=== PATIENT | female | born 1945 | race American Indian/Alaskan Native ===

== ENCOUNTER 2018-04-17 12:10 | Inpatient (IN) | payer MEDICARE ==
[2018-04-17] MEDS ORDERED: D50W (25GM) Syringe IV ONE (12:25)
[2018-04-17] MEDS ORDERED: NACL 0.9% 1000 ML 1,000 ML ONE (12:25)
--- NOTE | 2018-04-17 13:58 | Emergency Department Report ---
HPI - General Chief Complaint: Hypoglycemia Time Seen by Provider: 04/17/18 13:32 - HPI HPI: Room 2 The patient is 72-year-old female presenting with chief complaint decubitus ulcer infection. The patient has a hospice and home health nurse. Family sta hanh today the home health nurse states the patient's sacral decubitus ulcer appeared infected. She states it was malodorous and there was a green discharge noticed today. Family states there has been no history of fever the patient has not been eating or drinking for the past 2-3 days. There's been no history of vomiting Location: Sacral Duration: [See above] Quality: [See above] Severity: Moderate Modifying factors: [see above] Context: [see above] Mode of transportation: [not driving] ED Past Medical Hx - Past Medical History Previous Medical History?: Yes Hx Hypertension: Yes Hx CVA: Yes Hx Arthritis: Yes Hx Dementia: Yes (Alzheimer's) Additional medical history: gout - Surgical History Additional Surgical History: Ankle surgery - Family History Family history: no significant - Social History Smoking Status: Never Smoker Substance Use Type: None ED Review of Systems ROS: Stated complaint: NOT EATING DAYS/BED SORES Other details as noted in HPI Comment: Unobtainable due to pts medical conditions (dementia) Physical Exam - Physical Exam Vital Signs: Vital Signs 04/17/18 12:52 Temperature 98.3 F Pulse Rate 56 L Respiratory 12 Rate Blood Pressure 113/52 O2 Sat by Pulse 99 Oximetry Physical Exam: GENERAL: The patient is well-developed well-nourished female lying on stretcher not appearing to be in acute distress. [] HEENT: Normocephalic. Atraumatic. Extraocular motions are intact. Patient has moist mucous membranes. NECK: Supple. Trachea midline CHEST/LUNGS: Clear to auscultation. There is no respiratory distress noted. HEART/CARDIOVASCULAR: Regular. There is no tachycardia. There is no gallop rub or murmur. ABDOMEN: Abdomen is soft, nontender. Patient has normal bowel sounds. There is no abdominal distention. SKIN: There is no diaphoresis. Proximal to the racquetball size sacral decubitus defect in the left gluteus with some green discharge. Second sacral decubitus ulcer approximately golf ball-sized defect with pink granulation tissue NEURO: The patient is awake. The patient is cooperative. The patient has no focal neurologic deficits. MUSCULOSKELETAL: There is no evidence of acute injury. ED Course Vital Signs 04/17/18 12:52 Temperature 98.3 F Pulse Rate 56 L Respiratory 12 Rate Blood Pressure 113/52 O2 Sat by Pulse 99 Oximetry ED Medical Decision Making - Lab Data Result diagrams: 04/17/18 13:43 04/17/18 13:43 Laboratory Tests 04/17/18 04/17/18 04/17/18 12:29 13:43 13:43 WBC 5.4 RBC 3.45 L Hgb 10.0 L Hct 32.4 MCV 94 MCH 29 MCHC 31 RDW 16.6 H Plt Count 274 Lymph % (Auto) 14.9 Payne % (Auto) 6.7 Eos % (Auto) 0.1 Baso % (Auto) 0.3 Lymph # 0.8 L Payne # 0.4 Eos # 0.0 Baso # 0.0 Seg Neutrophils % 78.0 H Seg Neutrophils # 4.2 Sodium 162 H* Potassium 2.7 L* Chloride 86.1 L Carbon Dioxide 18 L Anion Gap 61 BUN 10 Creatinine 0.3 L Estimated GFR > 60 BUN/Creatinine Ratio 33 Glucose 135 H POC Glucose 68 L Lactic Acid Calcium 7.7 L Total Bilirubin 0.30 AST 39 ALT 24 Alkaline Phosphatase 249 H Total Protein 5.8 L Albumin 2.6 L Albumin/Globulin Ratio 0.8 04/17/18 13:53 WBC RBC Hgb Hct MCV MCH MCHC RDW Plt Count Lymph % (Auto) Payne % (Auto) Eos % (Auto) Baso % (Auto) Lymph # Payne # Eos # Baso # Seg Neutrophils % Seg Neutrophils # Sodium Potassium Chloride Carbon Dioxide Anion Gap BUN Creatinine Estimated GFR BUN/Creatinine Ratio Glucose POC Glucose Lactic Acid 1.60 Calcium Total Bilirubin AST ALT Alkaline Phosphatase Total Protein Albumin Albumin/Globulin Ratio - Differential Diagnosis decubitus ulcer Critical care attestation.: If time is entered above; I have spent that time in minutes in the direct care of this critically ill patient, excluding procedure time. ED Disposition Clinical Impression: decubitus ulcer,, Hypernatremia, Hypokalemia Disposition: OP ADMIT IP TO THIS HOSP Is pt being admited?: Yes Does the pt Need Aspirin: Yes Condition: Fair Time of Disposition: 14:53 (hospitalist paged (Dr Gomez))
[2018-04-17 14:07] LABS: Basophils % (Auto) 0.3 % (0.0-1.8); Eosinophils % (Auto) 0.1 % (0.0-4.3); Hematocrit 32.4 % (30.3-42.9); Lymphocytes # (Auto) 0.8 K/mm3 (1.2-5.4); Lymphocytes % (Auto) 14.9 % (13.4-35.0); Mean Corpuscular HGB Conc 31 % (30-34); Mean Corpuscular Volume 94 fl (79-97); Monocytes # (Auto) 0.4 K/mm3 (0.0-0.8); Monocytes % (Auto) 6.7 % (0.0-7.3); Platelet Count 274 K/mm3 (140-440); Red Blood Count 3.45 M/mm3 (3.65-5.03); Red Cell Distribution Width 16.6 % (13.2-15.2)
[2018-04-17 14:31] LABS: Alanine Aminotransferase 24 units/L (7-56); Albumin 2.6 g/dL (3.9-5); BUN/Creatinine Ratio 33; Blood Urea Nitrogen 10 mg/dL (7-17); Calcium 7.7 mg/dL (8.4-10.2); Hemolysis Index 13
[2018-04-17] MEDS ORDERED: NACL 0.9% 1000 ML 1,000 ML IV ONE (14:49)
[2018-04-17] MEDS: KCL 10MEQ/100ML 10 MEQ/100 ML BAG IV SCH ×5 (15:06→23:49)
[2018-04-17] MEDS ORDERED: D50W (25GM) Syringe IV PRN (17:23)
[2018-04-17] MEDS ORDERED: KCL 10MEQ/100ML 10 MEQ/100 ML BAG IV ONE (19:20)
--- NOTE | 2018-04-17 21:37 | Event Note ---
Date: 04/17/18 See dictated H/p in reports Sacral Decub ulcer --infected Hypernatremia Hypokalemia Full code
[2018-04-17] MEDS ORDERED: REGLAN IV PRN (22:09)
[2018-04-17] MEDS ORDERED: DILAUDID IV PRN ×2 (22:09)
[2018-04-17] MEDS ORDERED: SODIUM CHLORIDE FLUSH SYRINGE 10 ML IV PRN (22:09)
[2018-04-17] MEDS ORDERED: TYLENOL PO PRN (22:09)
[2018-04-17] MEDS ORDERED: ZOFRAN IV PRN (22:09)
--- NOTE | 2018-04-17 22:52 | History and Physical Report ---
CHIEF COMPLAINT: 1. Decreased p.o. intake. 2. Lethargy. 3. Sacral decubitus ulcer, which is infected. HISTORY OF PRESENT ILLNESS: A 72-year-old female with sacral decubitus ulcer on hospice, brought in by daughter for being lethargic and poor p.o. intake for the last 2 days. The wound has been foul smelling. Daughter wanted to be treated with antibiotics and IV fluids. We had discussion about the patient being in the hospital and to write a DNR, but the daughter wants everything to be done. The patient wants to be treated aggressively. Low-grade fever present. The patient has been with decreased responsiveness also. PAST MEDICAL HISTORY: Significant for hypertension, cerebrovascular accident, dementia, gout, and hyperlipidemia. PAST SURGICAL HISTORY: Ankle surgery. SOCIAL HISTORY: Does not smoke. The patient goes to [employer]. The patient lives at home with her daughter. REVIEW OF SYSTEMS: Significant for decubitus ulcers and poor p.o. intake and decreased responsiveness and low grade fever. Otherwise, review of systems negative. The patient is curled up and trying to rest. PHYSICAL EXAMINATION: GENERAL: Elderly female, looks older than her age. VITAL SIGNS: Blood pressure is 132/72, temperature is 98, pulse is 64, respirations 12, and sats are 98%. HEENT: Unremarkable. Pupils are equal and reactive. NECK: Supple, no lymphadenopathy, no thyromegaly. LUNGS: Clear to auscultation and percussion. Good air entry. CARDIOVASCULAR: S1, S2 heard. No gallop, no murmur, no rub. Apical impulse in left fifth intercostal space and midclavicular line. ABDOMEN: Soft and benign. No hepatosplenomegaly. No guarding, no rigidity. Hernial orifices are normal. EXTREMITIES: Severe sacral decubitus, large sacral decubitus ulcer present. Foul smelling discharge present. Stage 4 ulcer. Pictures of the decubitus ulcer on the chart. EXTREMITIES: Weak pedal pulses. CENTRAL NERVOUS SYSTEM: Alert, but not oriented to time and place. SKIN: As mentioned, sacral decubitus ulcer, stage 4. LABORATORY DATA: Significant for white count of 5400, H and H of 10.0 and 32.4, and platelet count of 274,000. Sodium is 162, potassium is 2.7, BUN and creatinine are 10 and 0.3, and glucose is 135. Repeat glucose is 68 and 126. Alkaline phosphatase is 249, total protein is 5.8, and albumin is 2.6. ASSESSMENT AND PLAN: 1. Severe sacral decubitus ulcer. Wound care consult and surgical consult requested. IV antibiotics ordered. The patient is end-stage life. Discussed with daughter about the care. The daughter wants everything to be done. She does not want a DNR at this point. 2. Hypernatremia. D5W started to decrease the sodium concentration. 3. Hypokalemia. IV potassium. 4. Poor p.o. intake. The patient may need PEG tube. As per daughter, she may need PEG tube. 5. Hyperlipidemia. Statin can be stopped because it is not necessary given her condition. 6. Hypertension. Continue nifedipine and lisinopril. 7. Dementia with agitation, continue Seroquel. 8. Deep venous thrombosis prophylaxis, Lovenox 30 mg subcutaneous daily. 9. Severe malnutrition. Dietitian consult requested. JOB# [id number] VSM/NTS
[2018-04-17] MEDS: D5W 1,000 ML IV SCH (23:49)
[2018-04-18] MEDS: KCL 10MEQ/100ML 10 MEQ/100 ML BAG IV SCH ×3 (00:57→03:40)
[2018-04-18] MEDS ORDERED: VANCOMYCIN PHARMACY TO DOSE IV SCH (02:00)
[2018-04-18] MEDS ORDERED: VANCOMYCIN/NS 1 GM/250 ML 1 GM/250 ML BAG IV ONE (02:30)
[2018-04-18] MEDS: UNASYN/NS 3 GM/100 ML 3 GM/100 ML BAG IV SCH ×4 (04:21→17:26)
[2018-04-18 04:28] LABS: Basophils % (Auto) 0.6 % (0.0-1.8); Eosinophils % (Auto) 1.1 % (0.0-4.3); Hematocrit 33.7 % (30.3-42.9); Lymphocytes # (Auto) 1.1 K/mm3 (1.2-5.4); Lymphocytes % (Auto) 28.8 % (13.4-35.0); Mean Corpuscular HGB Conc 33 % (30-34); Mean Corpuscular Volume 92 fl (79-97); Monocytes # (Auto) 0.3 K/mm3 (0.0-0.8); Monocytes % (Auto) 8.3 % (0.0-7.3); Platelet Count 272 K/mm3 (140-440); Red Blood Count 3.66 M/mm3 (3.65-5.03)
[2018-04-18 04:51] LABS: Alanine Aminotransferase 29 units/L (7-56); Albumin 2.8 g/dL (3.9-5); BUN/Creatinine Ratio 23; Blood Urea Nitrogen 7 mg/dL (7-17); Calcium 8.4 mg/dL (8.4-10.2); Hemolysis Index 27
[2018-04-18] MEDS: PEPCID PO SCH ×2 (09:43→22:39)
[2018-04-18] MEDS: ZESTRIL PO SCH (09:43)
[2018-04-18] MEDS: SODIUM CHLORIDE FLUSH SYRINGE 10 ML IV SCH ×2 (09:43→22:39)
[2018-04-18] MEDS: PROCARDIA XL PO SCH (09:53)
--- NOTE | 2018-04-18 10:44 | Gastroenterology Consultation ---
Addendum entered and electronically signed by LACY CHACKO MD 04/18/18 15:12: I have personally interviewed and examined the patient. I agree with the above A/P. The patient is nonverbal (dementia per daughter). Severe decubitus, and malnutrition. Discussed hospice option with daughter, but she is adamant that she wants PEG tube to assist with feeding, though it will likely not improve her mother's quality of life. Will plan on Friday 04/21; Dr Ruiz is glass ribbon machine operator assistant over the weekend for us. Original Note: History of Present Illness - Reason for Consult Consult date: 04/18/18 PEG placement Requesting physician: JUAN R RAHMAN - History of Present Illness Patient is a 72 y/o female with PMH of HTN, CVA, arthritis, Dementia/Alzheimer's who was admitted for infected sacral decubitus ulcer and poor PO intake. GI has been consulted for a PEG placement. This morning patient was resting in bed w/o acute distress. Noted to be non-verbal and unable to provide history. History obtained via chart review and by speaking to family via phone (daughter Eli Lancaster). Daughter reports patient has not been eating or drinking at home for last 2-3 days. Upon exam, abdomen is benign with no evidence of abd pain or N/V. Patient has a hospice and home health nurse. Past History Past Medical History: other (as per HPI) Past Surgical History: Other (ankle surgery) Social history: denies: smoking, alcohol abuse Family history: no significant family history Medications and Allergies Allergies Allergy/AdvReac Type Severity Reaction Status Date / Time No Known Allergies Allergy Unverified 04/17/18 13:34 Home Medications Medication Instructions Recorded Confirmed Last Taken Type AtorvaSTATin [Lipitor] 40 mg PO DAILY 04/17/18 04/17/18 Unknown History Cholecalciferol Vit D3 [Vitamin D3] 1,000 unit PO DAILY 04/17/18 04/17/18 U nknown History Lisinopril [Zestril TAB] 10 mg PO DAILY 04/17/18 04/17/18 Unknown History NIFEdipine [Adalat cc] 90 mg PO DAILY 04/17/18 04/17/18 Unknown History QUEtiapine [SEROquel] 25 mg PO QHS 04/17/18 04/17/18 Unknown History Active Meds: Active Medications Acetaminophen (Tylenol) 650 mg PO Q4H PRN PRN Reason: Pain MILD(1-3)/Fever >100.5/MOREAU Dextrose (D50w (25gm) Syringe) 50 ml IV PRN PRN PRN Reason: Hypoglycemia Last Admin: 04/17/18 17:25 Dose: 50 ml Documented by: Enoxaparin Sodium (Lovenox) 30 mg SUB-Q QDAY@2200 [facility] Famotidine (Pepcid) 20 mg PO BID [facility] Last Admin: 04/18/18 09:43 Dose: 20 mg Documented by: Hydromorphone HCl (Dilaudid) 0.25 mg IV Q3H PRN PRN Reason: Pain, Moderate (4-6) Hydromorphone HCl (Dilaudid) 0.5 mg IV Q3H PRN PRN Reason: Pain , Severe (7-10) Dextrose (D5w) 1,000 mls @ 100 mls/hr IV DIRECT [facility] Last Admin: 04/17/18 23:49 Dose: 100 mls/hr Documented by: Ampicillin Sodium/Sulbactam Sodium (Unasyn/Ns 3 Gm/100 Ml) 3 gm in 100 mls @ 100 mls/hr IV Q6HR [facility]; Protocol Last Admin: 04/18/18 06:07 Dose: 100 mls/hr Documented by: Vancomycin HCl 750 mg/ Sodium (Chloride) 265 mls @ 166.667 mls/hr IV Q12H [facility] Lisinopril (Zestril) 10 mg PO DAILY [facility] Last Admin: 04/18/18 09:43 Dose: 10 mg Documented by: Metoclopramide HCl (Reglan) 10 mg IV Q6H PRN PRN Reason: Nausea And Vomiting Nifedipine (Procardia Xl) 90 mg PO QDAY [facility] Last Admin: 04/18/18 09:53 Dose: Not Given Documented by: Ondansetron HCl (Zofran) 4 mg IV Q8H PRN PRN Reason: Nausea And Vomiting Quetiapine Fumarate (Seroquel) 25 mg PO QHS [facility] Sodium Chloride (Sodium Chloride Flush Syringe 10 Ml) 10 ml IV BID [facility] Sodium Chloride (Sodium Chloride Flush Syringe 10 Ml) 10 ml IV PRN PRN PRN Reason: LINE FLUSH medications reviewed/updated as required Review of Systems - Review of Systems ROS unobtainable: due to mental status Exam - Constitutional Vital Signs: Temp Pulse Resp BP Pulse Ox 98.0 F 49 L 20 150/59 100 04/18/18 07:59 04/18/18 09:43 04/18/18 08:58 04/18/18 09:43 04/18/18 08:58 General appearance: no acute distress, cachectic, other (nonverbal) - Respiratory Respiratory: bilateral: diminished - Cardiovascular Rhythm: other (bradycardia) - Gastrointestinal General gastrointestinal: Present: soft, non-distended, normal bowel sounds - Musculoskeletal Musculoskeletal: other (contractured, bed sores with dressings) - Neurologic Neurological: other (unable to assess) - Labs CBC & Chem 7: 04/18/18 03:28 04/18/18 03:28 Lab Results: Laboratory Results - last 24 hr 04/17/18 04/17/18 04/17/18 12:29 13:43 13:43 WBC 5.4 RBC 3.45 L Hgb 10.0 L Hct 32.4 MCV 94 MCH 29 MCHC 31 RDW 16.6 H Plt Count 274 Lymph % (Auto) 14.9 Wake % (Auto) 6.7 Eos % (Auto) 0.1 Baso % (Auto) 0.3 Lymph # 0.8 L Wake # 0.4 Eos # 0.0 Baso # 0.0 Seg Neutrophils % 78.0 H Seg Neutrophils # 4.2 Sodium 162 H* Potassium 2.7 L* Chloride 86.1 L Carbon Dioxide 18 L Anion Gap 61 BUN 10 Creatinine 0.3 L Estimated GFR > 60 BUN/Creatinine Ratio 33 Glucose 135 H POC Glucose 68 L Hemoglobin A1c Lactic Acid Calcium 7.7 L Total Bilirubin 0.30 AST 39 ALT 24 Alkaline Phosphatase 249 H Total Protein 5.8 L Albumin 2.6 L Albumin/Globulin Ratio 0.8 04/17/18 04/17/18 04/17/18 13:53 17:03 22:57 WBC RBC Hgb Hct MCV MCH MCHC RDW Plt Count Lymph % (Auto) [place] % (Auto) Eos % (Auto) Baso % (Auto) Lymph # Wake # Eos # Baso # Seg Neutrophils % Seg Neutrophils # Sodium Potassium Chloride Carbon Dioxide Anion Gap BUN Creatinine Estimated GFR BUN/Creatinine Ratio Glucose POC Glucose 126 H Hemoglobin A1c 5.3 Lactic Acid 1.60 Calcium Total Bilirubin AST ALT Alkaline Phosphatase Total Protein Albumin Albumin/Globulin Ratio 04/18/18 04/18/18 03:28 03:28 WBC 3.7 L RBC 3.66 Hgb 11.0 Hct 33.7 MCV 92 MCH 30 MCHC 33 RDW 16.0 H Plt Count 272 Lymph % (Auto) 28.8 Wake % (Auto) 8.3 H Eos % (Auto) 1.1 Baso % (Auto) 0.6 Lymph # 1.1 L Wake # 0.3 Eos # 0.0 Baso # 0.0 Seg Neutrophils % 61.2 Seg Neutrophils # 2.3 Sodium 144 D Potassium 4.7 D Chloride 107.4 H Carbon Dioxide 23 Anion Gap 18 BUN 7 Creatinine 0.3 L Estimated GFR > 60 BUN/Creatinine Ratio 23 Glucose 73 POC Glucose Hemoglobin A1c Lactic Acid Calcium 8.4 Total Bilirubin 0.40 AST 51 H ALT 29 Alkaline Phosphatase 315 H Total Protein 6.7 Albumin 2.8 L Albumin/Globulin Ratio 0.7 Assessment and Plan 1.PEG placement -discussed the option of a PEG placement with patient's daughter to include nature of procedure, details of technique, benefits, purpose, and risks including perforation, bleeding, infection, and independent risks of anesthesia. After consideration, family wishes to proceed with PEG placement. -will tentatively schedule for EGD/PEG on Friday 04/21 -consider alternative method of nutrition for now -NPO after MN 04/21 -hold am dose of lovenox 04/21 -INR in am 04/21 -continue supportive care -will follow
[2018-04-18] MEDS: VANCOMYCIN 750 MG in NACL 0.9% 250ML 250 ML IV SCH (13:56)
--- NOTE | 2018-04-18 14:00 | Consultation ---
History of Present Illness Consult date: 04/18/18 Reason for consult: wound care Requesting physician: JUAN R RAHMAN Chief complaint: sacral ulcer - History of present illness History of present illness: 72yo F from [facility] was brought in due to concerns about infected sacral ulcer and failure to thrive issues. Pt unable to give any history. No families of bedside. History was obtained from staff and chart. Past History Past Medical History: other (as per HPI) Past Surgical History: Other (ankle surgery) Social history: denies: smoking, alcohol abuse Family history: no significant family history Medications and Allergies Allergies Allergy/AdvReac Type Severity Reaction Status Date / Time No Known Allergies Allergy Unverified 04/17/18 13:34 Home Medications Medication Instructions Recorded Confirmed Last Taken Type AtorvaSTATin [Lipitor] 40 mg PO DAILY 04/17/18 04/17/18 Unknown History Cholecalciferol Vit D3 [Vitamin D3] 1,000 unit PO DAILY 04/17/18 04/17/18 Unknown History Lisinopril [Zestril TAB] 10 mg PO DAILY 04/17/18 04/17/18 Unknown History NIFEdipine [Adalat cc] 90 mg PO DAILY 04/17/18 04/17/18 Unknown History QUEtiapine [SEROquel] 25 mg PO QHS 04/17/18 04/17/18 Unknown History Active Meds: Active Medications Acetaminophen (Tylenol) 650 mg PO Q4H PRN PRN Reason: Pain MILD(1-3)/Fever >100.5/[facility]AU Dextrose (D50w (25gm) Syringe) 50 ml IV PRN PRN PRN Reason: Hypoglycemia Last Admin: 04/17/18 17:25 Dose: 50 ml Documented by: Enoxaparin Sodium (Lovenox) 30 mg SUB-Q QDAY@2200 [facility] Famotidine (Pepcid) 20 mg PO BID [facility] Last Admin: 04/18/18 09:43 Dose: 20 mg Documented by: Hydromorphone HCl (Dilaudid) 0.25 mg IV Q3H PRN PRN Reason: Pain, Moderate (4-6) Hydromorphone HCl (Dilaudid) 0.5 mg IV Q3H PRN PRN Reason: Pain , Severe (7-10) Dextrose (D5w) 1,000 mls @ 100 mls/hr IV DIRECT [facility] Last Admin: 04/17/18 23:49 Dose: 100 mls/hr Documented by: Ampicillin Sodium/Sulbactam Sodium (Unasyn/Ns 3 Gm/100 Ml) 3 gm in 100 mls @ 100 mls/hr IV Q6HR [facility]; Protocol Last Admin: 04/18/18 11:56 Dose: 100 mls/hr Documented by: Vancomycin HCl 750 mg/ Sodium (Chloride) 265 mls @ 166.667 mls/hr IV Q12H [facility] Lisinopril (Zestril) 10 mg PO DAILY [facility] Last Admin: 04/18/18 09:43 Dose: 10 mg Documented by: Metoclopramide HCl (Reglan) 10 mg IV Q6H PRN PRN Reason: Nausea And Vomiting Nifedipine (Procardia Xl) 90 mg PO QDAY [facility] Last Admin: 04/18/18 09:53 Dose: Not Given Documented by: Ondansetron HCl (Zofran) 4 mg IV Q8H PRN PRN Reason: Nausea And Vomiting Quetiapine Fumarate (Seroquel) 25 mg PO QHS [facility] Sodium Chloride (Sodium Chloride Flush Syringe 10 Ml) 10 ml IV BID [facility] Last Admin: 04/18/18 09:43 Dose: 10 ml Documented by: Sodium Chloride (Sodium Chloride Flush Syringe 10 Ml) 10 ml IV PRN PRN PRN Reason: LINE FLUSH Review of Systems ROS unobtainable: due to mental status (pt is non-communicative) Exam Vital Signs Pulse Resp BP Pulse Ox 55 L 12 113/52 98 04/17/18 12:49 04/17/18 12:49 04/17/18 12:49 04/17/18 12:49 - General physical appearance Positive: no distress, no pain, cathetic, other (awake) - Respiratory Positive: normal expansion, normal respiratory effort - Integumentary other (Left hip wound has mild fibrinous tissue and necrotic tissue. Sacral wound is relatively clean. minimal fibrinous/necrotic tissue.) Results - Labs 04/18/18 03:28 04/18/18 03:28 Abnormal lab results 04/17/18 04/17/18 04/17/18 Range/Units 13:43 13:43 17:03 WBC (4.5-11.0) K/mm3 RBC 3.45 L (3.65-5.03) M/mm3 Hgb 10.0 L (10.1-14.3) gm/dl RDW 16.6 H (13.2-15.2) % [place] % (Auto) (0.0-7.3) % Lymph # 0.8 L (1.2-5.4) K/mm3 Seg Neutrophils % 78.0 H (40.0-70.0) % Sodium 162 H* (137-145) mmol/L Potassium 2.7 L* (3.6-5.0) mmol/L Chloride 86.1 L (98-107) mmol/L Carbon Dioxide 18 L (22-30) mmol/L Creatinine 0.3 L (0.7-1.2) mg/dL Glucose 135 H (65-100) mg/dL POC Glucose 126 H (70-105) Calcium 7.7 L (8.4-10.2) mg/dL AST (5-40) units/L Alkaline Phosphatase 249 H (35-129) units/L Total Protein 5.8 L (6.3-8.2) g/dL Albumin 2.6 L (3.9-5) g/dL 04/18/18 04/18/18 Range/Units 03:28 03:28 WBC 3.7 L (4.5-11.0) K/mm3 RBC (3.65-5.03) M/mm3 Hgb (10.1-14.3) gm/dl RDW 16.0 H (13.2-15.2) % [place] % (Auto) 8.3 H (0.0-7.3) % Lymph # 1.1 L (1.2-5.4) K/mm3 Seg Neutrophils % (40.0-70.0) % Sodium (137-145) mmol/L Potassium (3.6-5.0) mmol/L Chloride 107.4 H (98-107) mmol/L Carbon Dioxide (22-30) mmol/L Creatinine 0.3 L (0.7-1.2) mg/dL Glucose (65-100) mg/dL POC Glucose (70-105) Calcium (8.4-10.2) mg/dL AST 51 H (5-40) units/L Alkaline Phosphatase 315 H (35-129) units/L Total Protein (6.3-8.2) g/dL Albumin 2.8 L (3.9-5) g/dL Diabetes panel 04/17/18 04/17/18 04/18/18 Range/Units 13:43 22:57 03:28 Sodium 162 H* 144 D (137-145) mmol/L Potassium 2.7 L* 4.7 D (3.6-5.0) mmol/L Chloride 86.1 L 107.4 H (98-107) mmol/L Carbon Dioxide 18 L 23 (22-30) mmol/L BUN 10 7 (7-17) mg/dL Creatinine 0.3 L 0.3 L (0.7-1.2) mg/dL Glucose 135 H 73 (65-100) mg/dL Hemoglobin A1c 5.3 (4-6) % Calcium 7.7 L 8.4 (8.4-10.2) mg/dL AST 39 51 H (5-40) units/L ALT 24 29 (7-56) units/L Alkaline Phosphatase 249 H 315 H (35-129) units/L Total Protein 5.8 L 6.7 (6.3-8.2) g/dL Albumin 2.6 L 2.8 L (3.9-5) g/dL Calcium panel 04/17/18 04/18/18 Range/Units 13:43 03:28 Calcium 7.7 L 8.4 (8.4-10.2) mg/dL Albumin 2.6 L 2.8 L (3.9-5) g/dL Pituitary panel 04/17/18 04/18/18 Range/Units 13:43 03:28 Sodium 162 H* 144 D (137-145) mmol/L Potassium 2.7 L* 4.7 D (3.6-5.0) mmol/L Chloride 86.1 L 107.4 H (98-107) mmol/L Carbon Dioxide 18 L 23 (22-30) mmol/L BUN 10 7 (7-17) mg/dL Creatinine 0.3 L 0.3 L (0.7-1.2) mg/dL Glucose 135 H 73 (65-100) mg/dL Calcium 7.7 L 8.4 (8.4-10.2) mg/dL Adrenal panel 04/17/18 04/18/18 Range/Units 13:43 03:28 Sodium 162 H* 144 D (137-145) mmol/L Potassium 2.7 L* 4.7 D (3.6-5.0) mmol/L Chloride 86.1 L 107.4 H (98-107) mmol/L Carbon Dioxide 18 L 23 (22-30) mmol/L BUN 10 7 (7-17) mg/dL Creatinine 0.3 L 0.3 L (0.7-1.2) mg/dL Glucose 135 H 73 (65-100) mg/dL Calcium 7.7 L 8.4 (8.4-10.2) mg/dL Total Bilirubin 0.30 0.40 (0.1-1.2) mg/dL AST 39 51 H (5-40) units/L ALT 24 29 (7-56) units/L Alkaline Phosphatase 249 H 315 H (35-129) units/L Total Protein 5.8 L 6.7 (6.3-8.2) g/dL Albumin 2.6 L 2.8 L (3.9-5) g/dL Assessment and Plan - Patient Problems (1) Decubitus skin ulcer Current Visit: Yes Status: Acute Qualifiers: Pressure injury location: sacral region Pressure injury stage: unstageable Qualified Code(s): L89.150 - Pressure ulcer of sacral region, unstageable Plan to address problem: Pt stable. Will begin with alginate therapy. No significant debridement needed at this time. Will re-evaluate with wound care nurse next week. Ultimately, the main therapy she needs is offloading. She needs to be turned q2h. She is not a candidate for wound vac due to hospice status. Will follow along. Please call with questions. Time=30min (2) Decubitus skin ulcer Current Visit: Yes Status: Acute Qualifiers: Pressure injury location: hip Pressure injury stage: unstageable Laterality: left Qualified Code(s): L89.220 - Pressure ulcer of left hip, unstageable Plan to address problem: Pt stable. Will begin with alginate therapy. No significant debridement needed at this time. Will re-evaluate with wound care nurse next week. Ultimately, the main therapy she needs is offloading. She needs to be turned q2h. She is not a candidate for wound vac due to hospice status. Will follow along. Please call with questions.
--- NOTE | 2018-04-18 17:08 | Progress Note ---
Assessment and Plan Assessment and plan: Patient is a 72 y/o female with PMH of HTN, CVA, arthritis, advance Dementia/Alzheimer's who was admitted for infected sacral decubitus ulcer and poor PO intake. GI has been consulted for a PEG placement. This morning patient was resting in bed w/o acute distress. Noted to be non-verbal and unable to pro vide history. History obtained via chart review and by speaking to family via phone (daughter Eli Lancaster). Daughter reports patient has not been eating or drinking at home for last 2-3 days. Upon exam, abdomen is benign with no evidence of abd pain or N/V. Patient has a hospice and home health nurse. Infected sacral ulcer: for possible debridement Severe malnutrition, FTT: for PEG on Saturday Functional quadriplegia, bed bound Acute metabolic encephalopathy, poa I called [facility] at [phone] History Interval history: Patient was seen and examined. Follow-up on current diagnosis. Overnight uneventful. Patient denies any chest pain, shortness breath, nausea/vomiting or severe headaches. Imaging, nursing note, chart, labs and old chart reviewed. Dis cussed with patient. Gen: WDWN, NAD, Awake, Alert, Orientated HEENT: NCAT, EOMI, PERRL, OP Clear Neck: supple, no adenopathy, no thyromegaly, no JVD CVS/Heart: RRR, normal S1S2, pulses present bilaterally Chest/Lungs: CTA B, Symmetrical chest expansion, good air entry bilaterally GI/Abdomen: soft, NTND, good bowel sounds, no guarding or rebound /Bladder: no suprapubic tenderness, no CVA or paraspinal tenderness Extermity/Skin: no c/c/e, no obvious rash MSK: FROM x 4 Neuro: CN 2-12 grossly intact, no new focal deficits Psych: calm Hospitalist Physical - Constitutional Vitals: Temp Pulse Resp BP Pulse Ox 97.7 F 58 L 20 129/40 99 04/18/18 13:54 04/18/18 13:54 04/18/18 13:54 04/18/18 13:54 04/18/18 13:54 Results - Labs CBC & Chem 7: 04/18/18 03:28 04/18/18 03:28 Labs: Laboratory Last Values WBC 3.7 K/mm3 (4.5-11.0) L 04/18/18 03:28 RBC 3.66 M/mm3 (3.65-5.03) 04/18/18 03:28 Hgb 11.0 gm/dl (10.1-14.3) 04/18/18 03:28 Hct 33.7 % (30.3-42.9) 04/18/18 03:28 MCV 92 fl (79-97) 04/18/18 03:28 MCH 30 pg (28-32) 04/18/18 03:28 MCHC 33 % (30-34) 04/18/18 03:28 RDW 16.0 % (13.2-15.2) H 04/18/18 03:28 Plt Count 272 K/mm3 (140-440) 04/18/18 03:28 Lymph % (Auto) 28.8 % (13.4-35.0) 04/18/18 03:28 [place] % (Auto) 8.3 % (0.0-7.3) H 04/18/18 03:28 Eos % (Auto) 1.1 % (0.0-4.3) 04/18/18 03:28 Baso % (Auto) 0.6 % (0.0-1.8) 04/18/18 03:28 Lymph # 1.1 K/mm3 (1.2-5.4) L 04/18/18 03:28 [place] # 0.3 K/mm3 (0.0-0.8) 04/18/18 03:28 Eos # 0.0 K/mm3 (0.0-0.4) 04/18/18 03:28 Baso # 0.0 K/mm3 (0.0-0.1) 04/18/18 03:28 Seg Neutrophils % 61.2 % (40.0-70.0) 04/18/18 03:28 Seg Neutrophils # 2.3 K/mm3 (1.8-7.7) 04/18/18 03:28 Sodium 144 mmol/L (137-145) D 04/18/18 03:28 Potassium 4.7 mmol/L (3.6-5.0) D 04/18/18 03:28 Chloride 107.4 mmol/L (98-107) H 04/18/18 03:28 Carbon Dioxide 23 mmol/L (22-30) 04/18/18 03:28 Anion Gap 18 mmol/L 04/18/18 03:28 BUN 7 mg/dL (7-17) 04/18/18 03:28 Creatinine 0.3 mg/dL (0.7-1.2) L 04/18/18 03:28 Estimated GFR > 60 ml/min 04/18/18 03:28 BUN/Creatinine Ratio 23 % 04/18/18 03:28 Glucose 73 mg/dL (65-100) 04/18/18 03:28 POC Glucose 126 (70-105) H 04/17/18 17:03 Hemoglobin A1c 5.3 % (4-6) 04/17/18 22:57 Lactic Acid 1.60 mmol/L (0.7-2.0) 04/17/18 13:53 Calcium 8.4 mg/dL (8.4-10.2) 04/18/18 03:28 Total Bilirubin 0.40 mg/dL (0.1-1.2) 04/18/18 03:28 AST 51 units/L (5-40) H 04/18/18 03:28 ALT 29 units/L (7-56) 04/18/18 03:28 Alkaline Phosphatase 315 units/L (35-129) H 04/18/18 03:28 Total Protein 6.7 g/dL (6.3-8.2) 04/18/18 03:28 Albumin 2.8 g/dL (3.9-5) L 04/18/18 03:28 Albumin/Globulin Ratio 0.7 % 04/18/18 03:28 Nutrition/Malnutrition Assess - Dietary Evaluation Nutrition/Malnutrition Findings: Nutrition Notes Start: 04/18/18 12:00 Freq: Status: Active Protocol: Document 04/18/18 12:00 TW (Rec: 04/18/18 13:06 TW [id number]) Co-Sign 04/18/18 12:00 RM Nutrition Notes Need for Assessment generated from: MD Order design verification engineer MST Initial or Follow up Assessment Current Diagnosis Hypertension Stroke Hyperlipidemia Other Pertinent Diagnosis Dementia, Gout, Hip and Sacral wound Current Diet Regular w/ NPO after midnight Labs/Tests Na: 162 K: 2.7 Pertinent Medications Lovenox Height 4 ft 9.6 in Weight 43.4 kg [place] Body Weight (kg) 40.00 BMI 20.2 Weight change and time frame wt obtained from [facility] Subjective/Other Information MD consult for oral supplement . RN screen for MST Score, chewing difficulty and new onset DM. Pt does not appear to be 40ft tall. RN stated that ht is 4'9.6. Corrected in record accordingly. Pt not appropriate for DM diet education. Observed breakfast tray not eaten. Per RN, pt wants to be changed to the mechanical soft diet and Ensure Enlive supplements d/t chewing difficulties. No clavicle, temporal, or orbital wasting. Percent of energy/protein needs met: 0%/0% Burn Absent Trauma Absent #2 Nutrition Diagnosis Food and nutrition-related knowledge deficit #1 Nutrition Diagnosis Inadequate oral intake Etiology Dementia As Evidenced by Signs and Symptoms Pt meeting 0% of protein and kcal needs Is patient on ventilator? No Is Patient Ambulatory and/or Out of Bed No REE-([facility]-confined to bed) 999.240 Kcal/Kg value to use for calculation 29 Approximate Energy Requirements Using 1259 kcal/Kg Calculation Used for Recommendations Kcal/kg Additional Notes Protein needs: (1.2-1.5 g/kg) (52-65 g/day) Fluid needs: 1ml/ kcal Nutrition Intervention Change Diet Order: Mechanical Soft Add Supplement/Snack (indicate name/kcal Ensure Enlive daily /protein ) Provides kCal: 350 Provides Protein (gm) 20 Goal #1 Meet at least 75% of needs with kcal and protein intake Goal #2 ONS tolerance Anticipated Discharge Needs: unable to determine at this time Follow-Up By: 04/22/18 Additional Comments F/U for PO intakes, and ONS supplement
[2018-04-18] MEDS ORDERED: LOVENOX SUB-Q SCH (22:00)
[2018-04-18] MEDS: D5W 1,000 ML IV SCH (22:37)
[2018-04-19] MEDS: UNASYN/NS 3 GM/100 ML 3 GM/100 ML BAG IV SCH ×4 (00:33→17:20)
[2018-04-19] MEDS: VANCOMYCIN 750 MG in NACL 0.9% 250ML 250 ML IV SCH (02:40)
--- NOTE | 2018-04-19 09:11 | Event Note ---
Date: 04/19/18 1.PEG placement - will still plan for EGD/PEG on Saturday on 04/21. - NPO after MN on 04/20 - hold am dose of lovenox 04/21 - INR in am 04/21 - ensure electrolytes are wnl on 04/21.
[2018-04-19] MEDS: PROCARDIA XL PO SCH (09:43)
[2018-04-19] MEDS: ZESTRIL PO SCH (09:43)
[2018-04-19] MEDS: SODIUM CHLORIDE FLUSH SYRINGE 10 ML IV SCH (09:49)
[2018-04-19] MEDS: D5W 1,000 ML IV SCH (09:51)
[2018-04-19] MEDS ORDERED: PEPCID PO SCH (10:00)
--- NOTE | 2018-04-19 15:21 | Progress Note ---
Assessment and Plan Assessment and plan: Patient is a 72 y/o female with PMH of HTN, CVA, arthritis, advance Dementia/Alzheimer's who was admitted for infected sacral decubitus ulcer and poor PO intake. GI has been consulted for a PEG placement. This morning patient was resting in bed w/o acute distress. Noted to be non-verbal and unable to pro vide history. History obtained via chart review and by speaking to family via phone (daughter Eli Lancaster). Daughter reports patient has not been eating or drinking at home for last 2-3 days. Upon exam, abdomen is benign with no evidence of abd pain or N/V. Patient has a hospice and home health nurse. Infected sacral ulcer: iv abx, Surgery evaluated Severe malnutrition, FTT, albumin 2.6: for PEG on Saturday Functional quadriplegia, bed bound Acute metabolic encephalopathy, poa I called [facility] at [phone] again. Ok to send to [facility] facility I called and d/w sister Johana Hernandez at [phone], History Interval history: Patient was seen and examined. Follow-up on current diagnosis of Infected sacral ulcer. Overnight uneventful. Patient denies any chest pain, shortness breath, nausea/vomiting or severe headaches. Imaging, nursing note, chart, labs and old chart reviewed. Discussed with patient. Hospitalist Physical - Physical exam Narrative exam: Gen: cachetic, awake, confused, nonverbal HEENT: NCAT, EOMI, PERRL, OP Clear Neck: supple, no adenopathy, no thyromegaly, no JVD CVS/Heart: regular bradycardia normal S1S2, pulses present bilaterally Chest/Lungs: clear but poor effort, Symmetrical chest expansion, good air entry bilaterally GI/Abdomen: soft, NTND, good bowel sounds, no guarding or rebound /Bladder: no suprapubic tenderness, no CVA or paraspinal tenderness Extermity/Skin: left hip with unstage ulcer, sacrum with unstageble ulcer, MSK: contracted with atrophic limbs Neuro: CN 2-12 grossly intact, nonverbal, doesn't follow command Psych: calm but confused - Constitutional Vitals: Temp Pulse Resp BP Pulse Ox 97.8 F 55 L 20 142/64 100 04/19/18 07:43 04/19/18 10:00 04/19/18 07:43 04/19/18 09:43 04/19/18 07:43 Results - Labs CBC & Chem 7: 04/18/18 03:28 04/18/18 03:28 Labs: Laboratory Last Values WBC 3.7 K/mm3 (4.5-11.0) L 04/18/18 03:28 RBC 3.66 M/mm3 (3.65-5.03) 04/18/18 03:28 Hgb 11.0 gm/dl (10.1-14.3) 04/18/18 03:28 Hct 33.7 % (30.3-42.9) 04/18/18 03:28 MCV 92 fl (79-97) 04/18/18 03:28 MCH 30 pg (28-32) 04/18/18 03:28 MCHC 33 % (30-34) 04/18/18 03:28 RDW 16.0 % (13.2-15.2) H 04/18/18 03:28 Plt Count 272 K/mm3 (140-440) 04/18/18 03:28 Lymph % (Auto) 28.8 % (13.4-35.0) 04/18/18 03:28 [place] % (Auto) 8.3 % (0.0-7.3) H 04/18/18 03:28 Eos % (Auto) 1.1 % (0.0-4.3) 04/18/18 03:28 Baso % (Auto) 0.6 % (0.0-1.8) 04/18/18 03:28 Lymph # 1.1 K/mm3 (1.2-5.4) L 04/18/18 03:28 [place] # 0.3 K/mm3 (0.0-0.8) 04/18/18 03:28 Eos # 0.0 K/mm3 (0.0-0.4) 04/18/18 03:28 Baso # 0.0 K/mm3 (0.0-0.1) 04/18/18 03:28 Seg Neutrophils % 61.2 % (40.0-70.0) 04/18/18 03:28 Seg Neutrophils # 2.3 K/mm3 (1.8-7.7) 04/18/18 03:28 Sodium 144 mmol/L (137-145) D 04/18/18 03:28 Potassium 4.7 mmol/L (3.6-5.0) D 04/18/18 03:28 Chloride 107.4 mmol/L (98-107) H 04/18/18 03:28 Carbon Dioxide 23 mmol/L (22-30) 04/18/18 03:28 Anion Gap 18 mmol/L 04/18/18 03:28 BUN 7 mg/dL (7-17) 04/18/18 03:28 Creatinine 0.3 mg/dL (0.7-1.2) L 04/18/18 03:28 Estimated GFR > 60 ml/min 04/18/18 03:28 BUN/Creatinine Ratio 23 % 04/18/18 03:28 Glucose 73 mg/dL (65-100) 04/18/18 03:28 POC Glucose 126 (70-105) H 04/17/18 17:03 Hemoglobin A1c 5.3 % (4-6) 04/17/18 22:57 Lactic Acid 1.60 mmol/L (0.7-2.0) 04/17/18 13:53 Calcium 8.4 mg/dL (8.4-10.2) 04/18/18 03:28 Total Bilirubin 0.40 mg/dL (0.1-1.2) 04/18/18 03:28 AST 51 units/L (5-40) H 04/18/18 03:28 ALT 29 units/L (7-56) 04/18/18 03:28 Alkaline Phosphatase 315 units/L (35-129) H 04/18/18 03:28 Total Protein 6.7 g/dL (6.3-8.2) 04/18/18 03:28 Albumin 2.8 g/dL (3.9-5) L 04/18/18 03:28 Albumin/Globulin Ratio 0.7 % 04/18/18 03:28 Nutrition/Malnutrition Assess - Dietary Evaluation Nutrition/Malnutrition Findings: Nutrition Notes Start: 04/18/18 12:00 Freq: Status: Active Protocol: Document 04/18/18 12:00 TW (Rec: 04/18/18 13:06 TW [id number]) Co-Sign 04/18/18 12:00 RM Nutrition Notes Need for Assessment generated from: MD Order pullman conductor MST Initial or Follow up Assessment Current Diagnosis Hypertension Stroke Hyperlipidemia Other Pertinent Diagnosis Dementia, Gout, Hip and Sacral wound Current Diet Regular w/ NPO after midnight Labs/Tests Na: 162 K: 2.7 Pertinent Medications Lovenox Height 4 ft 9.6 in Weight 43.4 kg [place] Body Weight (kg) 40.00 BMI 20.2 [facility] change and [facility] Subjective/Other Information MD consult for oral supplement . RN screen for MST Score, chewing difficulty and new onset DM. Pt does not appear to be 40ft tall. RN stated that ht is 4'9.6. Corrected in record accordingly. Pt not appropriate for DM diet education. Observed breakfast tray not eaten. Per RN, pt wants to be changed to the mechanical soft diet and Ensure Enlive supplements d/t chewing difficulties. No clavicle, temporal, or orbital wasting. Percent of energy/protein needs met: 0%/0% Burn Absent Trauma Absent #2 Nutrition Diagnosis Food and nutrition-related knowledge deficit #1 Nutrition Diagnosis Inadequate oral intake Etiology Dementia As Evidenced by Signs and Symptoms Pt meeting 0% of protein and kcal needs Is patient on ventilator? No Is Patient Ambulatory and/or Out of Bed No REE-([facility]-confined [facility] bed) 999.240 Kcal/Kg value to use for calculation 29 Approximate Energy Requirements Using 1259 kcal/Kg Calculation Used for Recommendations Kcal/kg Additional Notes Protein needs: (1.2-1.5 g/kg) (52-65 g/day) Fluid needs: 1ml/ kcal Nutrition Intervention Change Diet Order: Mechanical Soft Add Supplement/Snack (indicate name/kcal Ensure Enlive daily /protein ) Provides kCal: 350 Provides Protein (gm) 20 Goal #1 Meet at least 75% of needs with kcal and protein intake Goal #2 ONS tolerance Anticipated Discharge Needs: unable to determine at this time Follow-Up By: 04/22/18 Additional Comments F/U for PO intakes, and ONS supplement
--- NOTE | 2018-04-19 17:14 | Discharge Summary ---
Providers - Providers Date of Admission: 04/17/18 15:33 Date of discharge: 04/19/18 Attending physician: MARIANA HAYNES 04/17/18 22:28 Consult to Wound/ET Nurse [CONS] Routine Reason For Exam: wound eval 04/17/18 22:29 Consult to Dietitian/Nutrition [CONS] Routine Physician Instructions: Reason For Exam: Reason for Consult: Pt needs oral supplement 04/17/18 22:30 Consult to Physician [CONS] Routine Comment: called office. mario Consulting Provider: ABHIJIT DELA CRUZ Physician Instructions: Reason For Exam: Sacral decubitus ulcer 04/17/18 22:31 Consult to Physician [CONS] Routine Comment: called office/mario Consulting Provider: CHELY MERRILL Physician Instructions: Reason For Exam: Poor po intake,PeG tube Primary care physician: MOLD YARD CRANE OPERATOR Hospitalization Condition: Fair Hospital course: Patient is a 72 y/o female with PMH of HTN, CVA with significant deficits, arthritis and Advance Dementia who was admitted for infected sacral decubitus ulcer and poor PO intake observed by home health nurse. GI has been consulted for a PEG placement. This morning patient was resting in bed w/o acute distress. Noted to be non-verbal and unable to provide history. History obtained via chart review and by speaking to family via phone (daughter Eli Lancaster). Daughter reports patient has not been eating or drinking at home for last 2-3 days. Upon exam, abdomen is benign with no evidence of abd pain or N/V. Patient has a hospice and home health nurse. Infected sacral ulcer and left hip: iv abx on iv vancomycin and iv unasyn, blood cultures negative x 48 hours, Surgery evaluated Severe hypernatremia, na 162: treated with free water/dextrose additive, normal now Severe malnutrition, FTT, albumin 2.6: for PEG on Saturday Severe hypokalemia, K was 2.7, resolved Functional quadriplegia, bed bound Acute metabolic encephalopathy, poa I called [facility] at [phone] again. Ok to send to [facility] facility, I spoke with Dr. Price and she has accepted [facility]. Patient is medically stable for discharge I called and d/w sister Johana Hernandez at [phone] and Daughter, Jeny Lancaster contact: [phone], update given Patient lives with daughter, Jeny and wants to be first contact and do not call her Aunt Johana Hernandez Disposition: [id number]/TX-[id number] ANOTHER TYPE HLTHCARE Time spent for discharge: 36 minutes Core Measure Documentation - Palliative Care Palliative Care/ Comfort Measures: Not Applicable - Core Measures Any of the following diagnoses?: none - VTE Discharge Requirements Deep Vein Thrombosis/Pulmonary Embolism Present on Admission: No Has pt received <5 days of overlap therapy or INR<2.0: No Anticoagulant overlap therapy prescribed at discharge: No Contraindication No Overlap Therapy order at DC: Not Indicated Exam - Physical Exam Narrative exam: Gen: cachetic, awake, confused, nonverbal HEENT: NCAT, EOMI, PERRL, OP Clear Neck: supple, no adenopathy, no thyromegaly, no JVD CVS/Heart: regular bradycardia normal S1S2, pulses present bilaterally Chest/Lungs: clear but poor effort, Symmetrical chest expansion, good air entry bilaterally GI/Abdomen: soft, NTND, good bowel sounds, no guarding or rebound /Bladder: no suprapubic tenderness, no CVA or paraspinal tenderness Extermity/Skin: left hip with unstage ulcer, sacrum with unstageble ulcer, MSK: contracted with atrophic limbs Neuro: CN 2-12 grossly intact, nonverbal, doesn't follow command Psych: calm but confused - Constitutional Vitals: Temp Pulse Resp BP Pulse Ox 98.8 F 74 20 159/89 96 04/19/18 13:57 04/19/18 13:57 04/19/18 13:57 04/19/18 13:57 04/19/18 13:57 Plan Activity: up only with assistance, fall precautions Diet: advance as tolerated Follow up with: PRIMARY CARE, [Primary Care Provider] - 7 Days
[2018-04-19 19:13] VITALS: BP 132/68
[2018-04-20] MEDS ORDERED: VANCOMYCIN/NS 1 GM/250 ML 1 GM/250 ML BAG IV SCH
[2018-04-20] MEDS ORDERED: HEPARIN SUB-Q SCH (15:10)
== END 2018-04-19 20:34 | disposition short-term general hospital (02) | DRG 640 ==
LOC: ED 12:10 → 2B-ACE 15:33
PROVIDERS: ADMIT Internal Medicine; ATTEND Internal Medicine
DX: E87.0 Hyperosmolality and hypernatremia (principal); G93.41 Metabolic encephalopathy; E43 Unspecified severe protein-calorie malnutrition; R53.2 Functional quadriplegia; R64 Cachexia; L89.150 Pressure ulcer of sacral region, unstageable; L89.220 Pressure ulcer of left hip, unstageable; E87.6 Hypokalemia; I10 Essential (primary) hypertension; M19.90 Unspecified osteoarthritis, unspecified site; G30.9 Alzheimer's disease, unspecified; F02.80 Dementia in other diseases classified elsewhere, unspecified severity, without behavioral disturbance, psychotic disturbance, mood disturbance, and anxiety; M10.9 Gout, unspecified; R62.7 Adult failure to thrive; E78.5 Hyperlipidemia, unspecified; I69.398 Other sequelae of cerebral infarction; Z74.01 Bed confinement status; Z79.899 Other long term (current) drug therapy; Z68.20 Body mass index [BMI] 20.0-20.9, adult
CPT/HCPCS: 36415; 80053; 82140; 82962; 83036; 85025; 87040; 96361; 96365; 96375; G0378; J0295; J1650; J3370; J3480; J7030; J7050; J7070